=== PATIENT | male | born 1970 | race Caucasian/White ===

== ENCOUNTER 2021-04-28 16:11 | Emergency (ER) | payer BC, SELFPAY ==
[2021-04-28 16:12] VITALS: BP 170/90; PULSE 93; RESP 18; TEMP 36.6; O2SAT 97; BMI 29.4
--- NOTE | 2021-04-28 16:20 | PC.NURSE ---
pt placed on cardiac monitoring at this time.
--- NOTE | 2021-04-28 16:27 | XR_ITS ---
PROCEDURE INFORMATION: Exam: XR Chest Exam date and time: 04/28/2021 4:27 PM Age: 50 years old Clinical indication: Other: Hypertension; Additional info: Lt arm tingle, elevated BP TECHNIQUE: Imaging protocol: XR of the chest. Views: 2 views. COMPARISON: No relevant prior studies available. FINDINGS: Lungs: Unremarkable. No consolidation. Pleural spaces: Unremarkable. No pleural effusion. No pneumothorax. Heart/Mediastinum: Unremarkable. No cardiomegaly. Bones/joints: Unremarkable. IMPRESSION: No acute findings.
--- NOTE | 2021-04-28 16:27 | ECG_ITS ---
APPROVED REPORT Exam: Resting ECG HR:87 bpm ECG Measurements Heart Rate 87 AXES MS 148 P 67 QRSd 94 QRS 50 QT 368 T 75 QTc 413 Conclusion SINUS RHYTHM NORMAL ECG UNCONFIRMED REPORT Electronically signed by : Lacho Rosales MD 04/29/2021 14:34:32
[2021-04-28 16:30] VITALS: BP 168/96; RESP 17
--- NOTE | 2021-04-28 16:30 | [facility].EDGENADL ---
ED Disposition Clinical Impression: Arm paresthesia, left, Elevated blood pressure reading Disposition: Home, Self-Care Condition on Discharge: Good Instructions: DI for High Blood Pressure Additional Instructions: Return to the emergency department if symptoms return. Follow-up with your primary care provider, call Friday to make appointment. Additional instructions regarding BLOOD PRESSURE: One or more of your blood pressure readings elevated today. Please contact your primary care physician for further evaluation or treatment of your blood pressure. Referrals: Zack Nunes [Primary Care Provider] - - Critical Care Critical Care Time: No Attestation: On 04/28/21, the high probability of a clinically significant, sudden or life threatening deterioration of the following system(s) required my full and direct attention, intervention and personal management. The time I documented below is in addition to time spent performing reported procedures but includes the following listed in this critical care notation. Medical Decision Making - Wilfrid Inquiry Pt receiving controlled substance: No Vital Signs: 04/28/21 16:12 04/28/21 16:30 04/28/21 17:00 Temperature 97.8 F Temperature Source Oral Pulse Rate 58 L Pulse Rate [Right Radial] 93 H Respiratory Rate 18 17 Blood Pressure 168/96 H 161/94 H Blood Pressure [Right Arm] 170/90 H Blood Pressure Mean [Right Arm] 116 Blood Pressure Source [Right Arm] Manual Cuff/ Auscultation Blood Pressure Position [Right Arm] Sitting 02 Sat by Pulse Oximetry 97 80 L Oxygen Delivery Method Room Air 04/28/21 17:30 04/28/21 18:03 Temperature Temperature Source Pulse Rate 95 H 105 H Pulse Rate [Right Radial] Respiratory Rate Blood Pressure 161/98 H 166/98 H Blood Pressure [Right Arm] Blood Pressure Mean [Right Arm] Blood Pressure Source [Right Arm] Blood Pressure Position [Right Arm] 02 Sat by Pulse Oximetry 98 99 Oxygen Delivery Method Room Air - Lab Data Lab Results 04/28/21 16:25: WBC 6.6, RBC 6.19, Hgb 15.4, Hct 47.7, MCV 77.1 L, MCH 24.9 L, MCHC 32.3, RDW 16.3, Plt Count 437 H, MPV 7.9, Neut % (Auto) 63.8, Lymph % (Auto) 23.4, [place] % (Auto) 7.0, Eos % (Auto) 3.0, Baso % (Auto) 2.8 H, Neut # (Auto) 4.2, Lymph # (Auto) 1.5, [place] # (Auto) 0.5, Eos # (Auto) 0.2, Baso # (Auto) 0.2 04/28/21 16:25: Sodium 134 L, Potassium 3.6, Chloride 100, Carbon Dioxide 26, Anion Gap 11.6, BUN 7 L, Creatinine 0.90, Estimated Creat Clear 131, Estimated GFR 90, Est GFR ( Amer) 109, Glucose 146 H, Calcium 7.9 L, Total Bilirubin 0.4, AST 33, ALT 26, Alkaline Phosphatase 104, Troponin I < 0.01, Total Protein 7.8, Albumin 4.6, Globulin 3.2, Albumin/Globulin Ratio 1.4 04/28/21 19:25: Troponin I < 0.01 Result diagrams: 04/28/21 16:25 04/28/21 16:25 Orders (Tests/Meds): ED MEDICATIONS Generic Name Dose Route Start Last Admin Trade Name Freq PRN Reason Stop Dose Admin Sodium Chloride 10 ml 04/28/21 16:27 Sodium Chloride 0.9% 10ml Flush Syringe IV 05/28/21 16:26 NEEDED PRN Maintain IV Site ORDERS Category Date Time Status Troponin I Q3H Lab 04/28/21 22:30 Ordered - Radiology Data #1 Image(s): Chest Image Reviewed: Yes I reviewed the patient's radiology image, Yes I have reviewed radiologist's interpretation Preliminary Findings: Normal/NAD PROCEDURE INFORMATION: Exam: XR Chest Exam date and time: 04/28/2021 4:27 PM Age: 50 years old Clinical indication: Other: Hypertension; Additional info: Lt arm tingle, elevated BP TECHNIQUE: Imaging protocol: XR of the chest. Views: 2 views. COMPARISON: No relevant prior studies available. FINDINGS: Lungs: Unremarkable. No consolidation. Pleural spaces: Unremarkable. No pleural effusion. No pneumothorax. Heart/Mediastinum: Unremarkable. No cardiomegaly. Bones/joints: Unremarkable. IMPRESSION: No acute findings. El
--- NOTE | 2021-04-28 16:41 | PC.NURSE ---
pt to radiology
[2021-04-28 16:43] LABS: Basophils # 0.2 K/mm3 (0-0.2); Basophils % 2.8 % (0.1-2.0); Chloride 100 mmol/L (98-107); Eosinophils # 0.2 K/mm3 (0.0-0.4); Hematocrit 47.7 % (42.0-52.0); Hemoglobin 15.4 g/dL (14.1-18.0); Lymphocytes # 1.5 K/mm3 (0.7-4.5); Lymphocytes % 23.4 % (10-50); Mean Corpuscular HGB Conc 32.3 g/dL (31.8-35.4); Mean Corpuscular Hemoglobin 24.9 pg (27.0-31.2); Mean Corpuscular Volume 77.1 fl (80-94); Mean Platelet Volume 7.9 fl (7.4-10.4); Monocytes # 0.5 K/mm3 (0.1-1.0); Neutrophils # 4.2 K/mm3 (1.8-7.8); Neutrophils % 63.8 % (37.0-80.0); Platelet Count 437 K/mm3 (142-424); Potassium 3.6 mmoL/L (3.5-5.1); Red Blood Count 6.19 M/mm3 (4.60-6.20); Red Cell Distribution Width 16.3 % (11.5-17.5); Sodium 134 mmol/L (136-145); White Blood Count 6.6 K/mm3 (4.8-10.8)
[2021-04-28 16:46] LABS: Alanine Aminotransferase 26 U/L (12-78); Albumin Level 4.6 g/dl (3.5-5.0); Albumin/Globulin Ratio 1.4 (1.1-1.8); Alkaline Phosphatase 104 U/L (38-126); Anion Gap 11.6 mEq/L (5-15); Aspartate Amino Transferase 33 U/L (17-59); Bilirubin,Total 0.4 mg/dl (0.2-1.3); Blood Urea Nitrogen 7 mg/dl (9-20); Carbon Dioxide 26 mmol/L (22.0-30.0); Creatinine Clearance Estimated 131 mL/min (50-200); Estimated Glomerular Filt Rate 90 ml/min (>60); GFR (African American) 109 ML/MIN (>60); Globulin 3.2 g/dL (1.3-3.2); Total Protein,Serum 7.8 g/dl (6.3-8.2)
[2021-04-28 16:47] LABS: Calcium 7.9 mg/dl (8.4-10.2); Glucose 146 mg/dl (74-100)
[2021-04-28 17:00] VITALS: BP 161/94; PULSE 58; O2SAT 80
[2021-04-28 17:00] LABS: Troponin I < 0.01 ng/ml (0.00-0.034)
[2021-04-28 17:30] VITALS: BP 161/98; PULSE 95; O2SAT 98
--- NOTE | 2021-04-28 17:31 | CT_ITS ---
PROCEDURE INFORMATION: Exam: CT Head Without Contrast Exam date and time: 04/28/2021 5:31 PM Age: 50 years old Clinical indication: Other: Arm tinglling and headache; Additional info: Left arm tingling, headache TECHNIQUE: Imaging protocol: Computed tomography of the head without contrast. Total images: 287 Radiation optimization: All CT scans at this facility use at least one of these dose optimization techniques: automated exposure control; mA and/or kV adjustment per patient size (includes targeted exams where dose is matched to clinical indication); or iterative reconstruction. COMPARISON: No relevant prior studies available. FINDINGS: Brain: Mild generalized atrophy. Moderate bilateral white matter hypodensities which are nonspecific but most commonly associated with chronic microvascular ischemia in this age group. No extra-axial fluid collections. No evidence of acute intracranial hemorrhage. Bah-white differentiation is well maintained. No CT evidence of large territory acute or subacute intracranial ischemia/infarct. No intracranial mass lesions. No midline shift or herniation. Cerebral ventricles: Ventricles normal. Paranasal sinuses: Visualized paranasal sinuses are clear. Mastoid air cells: Visualized mastoid air cells are clear. Orbital cavity: Visualized orbital contents demonstrate no acute abnormality. Vasculature: Mild-moderate calcific atherosclerosis. No asymmetric vascular hyperdensities suggestive of thrombosis are identified. Bones/joints: The calvarium and visualized facial bones are intact. The patient is edentulous with severe changes of chronic periodontal disease in the alveolar maxilla bilaterally. Soft tissues: Unremarkable. Other findings: The IACs are grossly normal. The sella is grossly normal. IMPRESSION: 1. No acute intracranial process. No intracranial hemorrhage or mass effect. 2. The patient is edentulous with severe changes of chronic periodontal disease in the alveolar maxilla bilaterally. 3. Mild-moderate calcific atherosclerosis.
--- NOTE | 2021-04-28 17:39 | PC.NURSE ---
pt to CT scan at this time
[2021-04-28 18:03] VITALS: BP 166/98; PULSE 105; O2SAT 99
--- NOTE | 2021-04-28 18:23 | PC.NURSE ---
pt is up to the bathroom.
--- NOTE | 2021-04-28 18:25 | PC.NURSE ---
pt back in bed after going to bathroom. Hooked back up to vital signs
[2021-04-28 19:54] LABS: Troponin I < 0.01 ng/ml (0.00-0.034)
[2021-04-28 20:49] VITALS: BP 144/90; PULSE 95; RESP 16; TEMP 36.7; O2SAT 98
== END 2021-04-28 20:51 | disposition home or self-care (01) ==
PROVIDERS: Emergency Provider Emergency Medicine; PCP Internal Medicine
DX: R20.0 Anesthesia of skin (principal); R03.0 Elevated blood-pressure reading, without diagnosis of hypertension; I25.2 Old myocardial infarction; Z88.0 Allergy status to penicillin
CPT/HCPCS: 36415; 70450; 71046; 80053; 84484; 85025; 93005; 99283